=== PATIENT | male | born 1945 | race Caucasian/White ===

== ENCOUNTER 2017-03-01 09:48 | Day surgery (SDC) | payer MEDICARE, MEDICAID ==
[2017-03-01 10:21] VITALS: BMI 22.9
--- NOTE | 2017-03-01 11:38 | CP.SDSHP ---
Same Day Surgery H & P - History Proposed Procedure: colonoscopy - Previous Medical/Surgical History Cardiac: Hypertension Endocrine/Metabolic: Diabetes Previous Surgical History: spine sx - Allergies Allergies: Allergies No Known Allergies Allergy (Verified 06/01/14 15:56) - Physical Exam Vital Signs: Vital Signs 03/01/17 10:23 Temperature 98.6 F Pulse Rate 80 Respiratory 20 Rate Blood Pressure 113/61 O2 Sat by Pulse 97 Oximetry - Date & Time Date: 03/01/17 Time: 11:38 Short Stay Discharge - Short Stay Discharge Admitting Diagnosis/Reason for Visit: ENCOUNTER FOR SCREENING FOR MALIGNANT NEOPLASM OF Disposition: HOME/ ROUTINE
[2017-03-01] MEDS ORDERED: Propofol 10 mg/ml Inj (20 ML) ONE ×2 (12:10→12:17)
[2017-03-01] MEDS ORDERED: Midazolam 2 MG/2 ML VIAL ONE (12:10)
[2017-03-01 13:15] VITALS: TEMP 97.8; O2SAT 100
[2017-03-01 15:04] VITALS: BP 102/55; PULSE 76; RESP 12
== END 2017-03-01 15:02 | disposition home or self-care (01) ==
LOC: C.ENDO 09:48
PROVIDERS: ATTEND Colon & Rectal Surgery
DX: K64.8 Other hemorrhoids (principal)
CPT/HCPCS: 45378; 82948; J2001; J2250; J2704